=== PATIENT | female | born 1960 | race Caucasian/White ===

== ENCOUNTER 2021-03-18 21:48 | Emergency (ER) | payer OTHER ==
[2021-03-18] MEDS ORDERED: Ondansetron 4 MG Tab.DIS PO ONE (21:49)
[2021-03-18] MEDS ORDERED: Sodium Chloride 0.9% 10 ML Syringe FLUSH PRN (22:06)
[2021-03-18] MEDS ORDERED: Ondansetron 4 MG/2 ML SDV IVPUSH ONE (22:06)
--- NOTE | 2021-03-18 22:11 | EDM.PDOC ---
ED HPI GENERAL MEDICAL PROBLEM - General Chief Complaint: General Stated Complaint: NAUSEA Time Seen by Provider: 03/18/21 22:09 Source of Information: Reports: Patient History Limitations: Reports: No Limitations - History of Present Illness INITIAL COMMENTS - FREE TEXT/NARRATIVE: 60 yo female with complains of nausea,vomiting and diarrhea for 1.5 weeks. Insidious onset and unable to keep anything down.No abdominal pain. Associated with weight loss. No fever ,chills,urinary symptoms or cardiovascular complaints Generalized Pain Score (Numeric/FACES): 4 - Related Data Allergies Allergy/AdvReac Type Severity Reaction Status Date / Time No Known Allergies Allergy Verified 03/18/21 22:01 Home Meds: Home Meds NK [No Known Home Meds] 03/18/21 [History] ED ROS GENERAL - Review of Systems Review Of Systems: Comprehensive ROS is negative, except as noted in HPI. ED EXAM, GENERAL - Physical Exam Exam: See Below Exam Limited By: No Limitations General Appearance: Alert, WD/WN, No Apparent Distress Ears: Normal External Exam Nose: Normal Inspection Throat/Mouth: Normal Inspection Head: Atraumatic Neck: Normal Inspection Respiratory/Chest: No Respiratory Distress, Lungs Clear Cardiovascular: Normal Peripheral Pulses, Regular Rate, Rhythm GI/Abdominal: Normal Bowel Sounds, Soft, No Distention, No Abnormal Bruit Course - Vital Signs Last Recorded V/S: Last Vital Signs Temp 98.4 F 03/18/21 22:03 Pulse 95 03/18/21 23:15 Resp 20 03/18/21 22:03 BP 116/78 03/18/21 22:03 Pulse Ox 98 03/18/21 23:15 - Orders/Labs/Meds Orders: Active Orders 24 hr Category Date Time Status Sodium Chloride 0.9% [Normal Saline] 1,000 ml Med 03/18/21 22:15 Active IV ASDIRECTED Sodium Chloride 0.9% [Saline Flush] Med 03/18/21 22:06 Active 10 ml FLUSH ASDIRECTED PRN Peripheral IV Insertion Adult [OM.PC] Routine Oth 03/18/21 22:06 Ordered Medication Orders Sodium Chloride (Normal Saline) 1,000 mls @ 999 mls/hr IV ASDIRECTED MICHELINE Last Admin: 03/18/21 22:21 Dose: 999 mls/hr Documented by: GEMINI Sodium Chloride (Sodium Chloride 0.9% 10 Ml Syringe) 10 ml FLUSH ASDIRECTED PRN PRN Reason: Keep Vein Open Labs: Laboratory Tests 03/18/21 03/18/21 03/18/21 Range/Units 22:15 22:15 22:15 WBC 16.4 H (3.0-10.3) x10-3/uL RBC 4.06 (3.60-5.20) x10(6)uL Hgb 16.0 H (11.4-15.5) g/dL Hct 46.4 (34.2-48.2) % MCV 114.4 H (76.7-100.5) fL MCH 39.4 H (23.9-33.9) pg MCHC 34.4 (31.9-34.8) g/dL RDW 14.5 (12.3-16.5) % Plt Count 130 L (151-488) x10(3)uL MPV 8.1 (7.1-12.4) fL Add Manual Diff Yes Neutrophils % (Manual) 89 H (46-82) % Lymphocytes % (Manual) 6 L (13-37) % Monocytes % (Manual) 5 (4-12) % Hypersegmented Neuts Occasional Macrocytosis Few Sodium 138 (135-145) mmol/L Potassium 3.6 (3.5-5.3) mmol/L Chloride 97 L (100-110) mmol/L Carbon Dioxide 29 (21-32) mmol/L BUN 18 (7-18) mg/dL Creatinine 1.0 (0.55-1.02) mg/dL Est Cr Clr Drug Dosing TNP Estimated GFR (MDRD) 57 L (>60) BUN/Creatinine Ratio 18.0 (9-20) Glucose 141 H (80-116) mg/dL Calcium 9.1 (8.6-10.2) mg/dL C-Reactive Protein 4.9 H* (0.5-0.9) mg/dL Meds: Medications Generic Name Dose Route Start Last Admin Trade Name Freq PRN Reason Stop Dose Admin Sodium Chloride 1,000 mls @ 999 mls/hr 03/18/21 22:15 03/18/21 22:21 Normal Saline IV 999 mls/hr ASDIRECTED MICHELINE Administration Sodium Chloride 10 ml 03/18/21 22:06 Sodium Chloride 0.9% 10 Ml Syringe FLUSH ASDIRECTED PRN Keep Vein Open Discontinued Medications Generic Name Dose Route Start Last Admin Trade Name Freq PRN Reason Stop Dose Admin Ondansetron HCl 8 mg 03/18/21 22:06 03/18/21 22:21 Ondansetron 4 Mg/2 Ml Sdv IVPUSH 03/18/21 22:07 8 mg ONETIME ONE Administration Departure - Departure Time of Disposition: 23:18 Disposition: Home, Self-Care 01 Condition: Good Clinical Impression: Gastroenteritis - Discharge Information Instructions: Viral Gastroenteritis, Adult Referrals: PCP,Not In Area [Primary Care Provider] - 1 Day Forms: ED Department Discharge Sepsis Event Note (ED) - Evaluation Sepsis Screening Result: No Definite Risk - Focused Exam Vital Signs: Vital Signs Temp Pulse Resp BP Pulse Ox 03/18/21 23:15 95 98 03/18/21 22:03 98.4 F 128 H 20 116/78 98 - Problem List & Annotations (1) Gastroenteritis SNOMED Code(s): 71158473 Code(s): K52.9 - NONINFECTIVE GASTROENTERITIS AND COLITIS, UNSPECIFIED Status: Acute Current Visit: No - Problem List Review Problem List Initiated/Reviewed/Updated: Yes - My Orders Last 24 Hours: My Active Orders 03/18/21 22:06 Sodium Chloride 0.9% [Saline Flush] 10 ml FLUSH ASDIRECTED PRN Peripheral IV Insertion Adult [OM.PC] Routine 03/18/21 22:15 Sodium Chloride 0.9% [Normal Saline] 1,000 ml IV ASDIRECTED - Assessment/Plan Last 24 Hours: My Active Orders 03/18/21 22:06 Sodium Chloride 0.9% [Saline Flush] 10 ml FLUSH ASDIRECTED PRN Peripheral IV Insertion Adult [OM.PC] Routine 03/18/21 22:15 Sodium Chloride 0.9% [Normal Saline] 1,000 ml IV ASDIRECTED Plan: WBC showed neutrophilia. She got 1 L NS and IV Zofran.Will DC home to follow up in AM with PCP
[2021-03-18] MEDS ORDERED: Sodium Chloride 0.9% 1,000 ML IV SCH (22:15)
== END 2021-03-18 23:30 | disposition home or self-care (01) ==
LOC: FB.ED 21:48
DX: K52.9 Noninfective gastroenteritis and colitis, unspecified (principal)
CPT/HCPCS: 36415; 80048; 85025; 86140; 96361; 96374; 99284; A9270; J2405; J7030